=== PATIENT | female | born 1970 | race Caucasian/White ===

== ENCOUNTER 2017-04-25 15:59 | Emergency (ER) | payer OTHER ==
--- NOTE | 2017-04-25 16:04 | PDOC ---
Attending Attestation - Resident Resident Name: Surekha Melgar - ED Attending Attestation I have performed the following: I have examined & evaluated the patient, The case was reviewed & discussed with the resident, I agree w/resident's findings & plan, Exceptions are as noted - HPI HPI: 04/25/17 16:09 46yo F hx HTN (intermittently compliant with lisinopril) p/w SOB, CP and palpitations a/w lightheadedness and nausea while cleaning with clorox. REports this is first time this happened. CP was substernal, pressure like, non radiating, resolved after a few minutes on its own. No LOC. Most of symptoms have resolved but she still has SOB and lightheadedness. Pt checks BP daily, reports she stopped taking lisinopril 3 months ago as SBP was in 140s, but 3 days ago SBP was in 160s and so she restarted lisinopril over the last 3 days. No recent travel or immobility. Denies any exogenous hormone use. No recent surgeries. Denies calf swelling. Denies any fevers, chills, coughing, nausea, vomiting, diarrhea, diaphoresis, headache, focal weakness or numbness, urinary symptoms. - Physicial Exam PE: 04/25/17 16:15 GENERAL: Awake, alert, and fully oriented, in no acute distress HEAD: No signs of trauma EYES: PERRLA, EOMI, sclera anicteric, conjunctiva clear ENT: Auricles normal inspection, hearing grossly normal, nares patent, oropharynx clear without exudates. Moist mucosa NECK: Normal ROM, supple, no lymphadenopathy, JVD, or masses LUNGS: Breath sounds equal, clear to auscultation bilaterally. No wheezes, and no crackles HEART: Regular rate and rhythm, normal S1 and S2, no murmurs, rubs or gallops ABDOMEN: Soft, nontender, normoactive bowel sounds. No guarding, no rebound. No masses EXTREMITIES: Normal range of motion, no edema. No clubbing or cyanosis. No cords, erythema, or tenderness NEUROLOGICAL: Normal speech, cranial nerves intact, negative pronator drift, 5/ 5 strength in all 4 extremities, normal sensation to light touch in all 4 extremities, normal cerebellar exam, normal gait, normal reflexes and tone SKIN: Warm, Dry, normal turgor, no rashes or lesions noted. - Medical Decision Making 04/25/17 16:31 46-year-old female with a history of hypertension presents with episode of shortness of breath, chest pain, lightheadedness while cleaning with Clorox. Patient also concerned that her blood pressure has been high over the last 3 days. Vitals in the ED with SBP in 150s, otherwise vitals wnl. Heart score 2. Since pt is low risk, will check 2 troponins and DC if they are negative. Pt does not meet any PERC criteria and thus PE is unlikely. Will check CXR for structural abnormalities or active pulm disease. Plan: -labs -CXR -reassess 04/25/17 18:32 Pt denies current symptoms. Feels better. Labs including first trop neg. CXR clear on my read. Second trop pending, signed out to oncoming night attending. Heart Score/ECG Review - History History: Slightly suspicious - Electrocardiogram EKG: Normal - Age Age: 45-65 - Risk Factors Risk Factors Heart Score: Yes Hx Hypertension Based on the list above the patient has:: 1-2 risk factors - Troponin Troponin: </= normal limit - Score Heart Score - Total: 2 #1 04/25/17 19:00 Twelve-lead EKG was performed and reviewed by me. Normal sinus rhythm, rate 73. Normal axis and intervals. No ST elevations. Isolated T-wave inversion in lead 3.
[2017-04-25 16:14] VITALS: TEMP 98.1; BMI 24.7
--- NOTE | 2017-04-25 16:45 | PDOC ---
History of Present Illness - History of Present Illness Initial Comments: 04/25/17 16:41 Patient is a 46 y.o female with a PMH of HTN who presents c/o acute onset of shortness of breath, palpitations lightheadness, nausea and chest pain while cleaning with Clorox bleach this morning. Patient states the non-radiating, pressure like chest pain over her sternum resolved within a few minutes however the dyspnea, lightheadedness and palpitations persisted prompting her to call 911 and present to the ED via ambulance. NKDA Surgical: none Social: denies cigarettes, denies alcohol, denies recreational drugs PMD: Dr. Trevon Shelton 04/25/17 16:47 <Surekha Melgar - Last Filed: 04/25/17 18:56> <Yash Watters - Last Filed: 04/25/17 21:25> - General Chief Complaint: Blood Pressure Problem Stated Complaint: HTN Time Seen by Provider: 04/25/17 16:03 Past History - Past Medical History Asthma: No Cancer: No Cardiac Disorders: No COPD: No Diabetes: No HTN: Yes Thyroid Disease: No - Reproductive History (#): 4 Para: 4 Therapeutic (s) & number: No - Suicide/Smoking/Psychosocial Hx Smoking History: Never smoked Have you smoked in the past 12 months: No Information on smoking cessation initiated: No Hx Alcohol Use: No Drug/Substance Use Hx: No Substance Use Type: None Hx Substance Use Treatment: No <Surekha Melgar - Last Filed: 04/25/17 18:56> <Yash Watters - Last Filed: 04/25/17 21:25> - Past Medical History Allergies/Adverse Reactions: Allergies Allergy/AdvReac Type Severity Reaction Status Date / Time No Known Allergies Allergy Verified 04/25/17 15:59 Home Medications: Ambulatory Orders Lisinopril 5 mg PO DAILY 04/25/17 *Physical Exam - Vital Signs Last Vital Signs Temp Pulse Resp BP Pulse Ox 98.1 F 84 20 166/79 100 04/25/17 15:59 04/25/17 15:59 04/25/17 15:59 04/25/17 15:59 04/25/17 15:59 - Physical Exam General Appearance: Yes: Nourished, Appropriately Dressed Respiratory/Chest: positive: Lungs Clear Cardiovascular: positive: Regular Rhythm, Regular Rate, S1, S2. negative: Murmur, Tachycardia Extremity: positive: Normal Capillary Refill, Normal Inspection Integumentary: positive: Normal Color, Dry, Warm Neurologic: positive: Fully Oriented, Alert <RamónSurekha - Last Filed: 04/25/17 18:56> - Vital Signs Last Vital Signs Temp Pulse Resp BP Pulse Ox 98.1 F 73 14 139/84 100 04/25/17 15:59 04/25/17 19:30 04/25/17 19:30 04/25/17 19:30 04/25/17 19:30 <Yash Watters - Last Filed: 04/25/17 21:25> ED Treatment Course - LABORATORY CBC & Chemistry Diagram: 04/25/17 16:40 04/25/17 16:40 <RamónSurekha - Last Filed: 04/25/17 18:56> - LABORATORY CBC & Chemistry Diagram: 04/25/17 16:40 04/25/17 16:40 - ADDITIONAL ORDERS Additional order review: Laboratory Results 04/25/17 04/25/17 20:24 16:40 Sodium 135 L Potassium 3.4 L Chloride 99 Carbon Dioxide 27 Anion Gap 9 BUN 15 Creatinine 0.7 Creat Clearance w eGFR > 60 Random Glucose 98 Calcium 9.5 Total Bilirubin 0.8 AST 19 ALT 20 Alkaline Phosphatase 82 Creatine Kinase 192 Troponin I < 0.03 L 0.00 Total Protein 8.0 Albumin 4.7 04/25/17 16:40 RBC 4.16 MCV 90.8 MCHC 33.2 RDW 12.1 MPV 10.3 Neutrophils % 66.2 Lymphocytes % 25.6 Monocytes % 6.3 Eosinophils % 1.0 Basophils % 0.9 <Yash Watters - Last Filed: 04/25/17 21:25> Medical Decision Making - Medical Decision Making 04/25/17 17:47 Patient is a 46 y.o. female who presents with resolved chest pain and current c/ o dyspnea, lightheadedness and palpitations. Patient is not tachycardic and saturating @ 100% on RA. Clinical suspicion for PE is low as patient does not meet PERC critier. Initial DDx is for anxiety vs. ACS. PLAN: 1. EKG 2. Troponin, CBC, CMP Reassess 04/25/17 17:53 EKG shows NSR HR 73 wtih normal intervals, good R wave progression and no ST elevations Troponin (-) x1, CBC shows no leukocytosis, no anemia. Minor hypokalemia Patient resting comfortably, notes symptoms have resolved. Repeat troponin @ 4 hour shu 20:00 04/25/17 18:55 Patient signed out to Dr. Watters in stable condition. 04/25/17 18:56 <Surekha Melgar - Last Filed: 04/25/17 18:56> *DC/Admit/Observation/Transfer <Surekha Melgar - Last Filed: 04/25/17 18:56> - Discharge Dispostion Admit: No <Yash Watters - Last Filed: 04/25/17 21:25> Diagnosis at time of Disposition: Lightheaded - Discharge Dispostion Disposition: HOME Condition at time of disposition: Stable - Patient Instructions Printed Discharge Instructions: DI for High Blood Pressure, How to Monitor Your Blood Pressure at Home Additional Instructions: See primary physician 2-3 days for follow-up. Return to ER if symptoms worsen or new symptoms develop. - Post Discharge Activity Forms/Work/School Notes: Back to Work
[2017-04-25 16:55] LABS: BASOPHIL 0.9 % (0-2.0); MCH 30.2 pg (25.7-33.7); MCHC 33.2 g/dl (32.0-36.0); MEAN CELL VOLUME 90.8 fl (80-96); MEAN PLT VOLUME 10.3 fl (7.5-11.1); NEUTROPHILS 66.2 % (42.8-82.8); PLATELET COUNT 215 K/MM3 (134-434); RDW 12.1 % (11.6-15.6); WHITE BLOOD COUNT 7.4 K/mm3 (4.0-10.8)
[2017-04-25 17:14] LABS: ALBUMIN 4.7 g/dl (3.5-5.0); ALK PHOS 82 U/L (32-92); ANION GAP 9 (8-16); BILIRUBIN,TOTAL 0.8 mg/dl (0.2-1.0); CALCIUM 9.5 mg/dl (8.4-10.2); CO2 27 mmol/L (22-28); CREATININE 0.7 mg/dl (0.6-1.3); GLUCOSE,RANDOM 98 mg/dl (74-106); SGOT/AST 19 U/L (10-42); SGPT/ALT 20 U/L (10-40)
[2017-04-25 19:31] VITALS: BP 139/84; PULSE 73
[2017-04-25 20:56] LABS: CPK 192 IU/L (26-192)
[2017-04-25 21:06] LABS: TROPONIN I (DFP) < 0.03 ng/ml (0.03-0.50)
--- NOTE | 2017-04-26 12:29 | EKG ---
Test Reason : Blood Pressure : / mmHG Vent. Rate : 073 BPM Atrial Rate : 073 BPM P-R Int : 134 ms QRS Dur : 100 ms QT Int : 408 ms P-R-T Axes : 033 034 035 degrees QTc Int : 449 ms SINUS RHYTHM RSR' OR QR PATTERN IN V1 SUGGESTS RIGHT VENTRICULAR CONDUCTION DELAY WHEN COMPARED WITH ECG OF 28-FEB-2014 13:43, NO SIGNIFICANT CHANGE WAS FOUND Confirmed by DANAE GARCIA MD ([id number]) on 04/26/2017 12:28:52 PM Referred By: MD JIMENEZ Confirmed By:DANAE GARCIA MD
== END 2017-04-25 21:30 | disposition home or self-care (01) ==
LOC: FER 15:59
DX: R42 Dizziness and giddiness (principal); I10 Essential (primary) hypertension
CPT/HCPCS: 36415; 71020-TC; 80053; 82550; 82553; 84484; 85025; 93005; 99283-25

== ENCOUNTER 2019-09-19 09:09 | Emergency (ER) | payer OTHER ==
[2019-09-19 09:17] VITALS: PULSE 81; TEMP 98.6; BMI 23.9
[2019-09-19] MEDS ORDERED: LACTATED RINGERS SOLUTION 1000 ML INFUS.BAG IV ONE (10:19)
--- NOTE | 2019-09-19 10:28 | PDOC ---
History of Present Illness - General Chief Complaint: Headache Stated Complaint: HYPERTENSION Time Seen by Provider: 09/19/19 09:46 History Source: Patient Exam Limitations: Clinical Condition - History of Present Illness Initial Comments: 09/19/19 10:30 Patient with past medical history of hypertension on amlodipine 5 mg daily presented with complaint of sudden onset of headache, elevated blood pressure and tingling sensation in left arm since this morning. Patient reported saw PCP 5 days ago for persistent elevated blood pressures and PCP put her on lisinopril. Patient did not take blood pressure medication today. Patient reported had elevated blood pressure yesterday with similar symptoms which improved after taking her blood pressure medication. Patient reported mild lightheadedness but denies nausea, vomiting, dizziness, blurry vision or change in vision. Denies shortness of breath, sweats, fever or chills. Denies any other symptoms Is this a multiple visit Asthma Patient?: No Timing/Duration: 4-6 hours Past History - Past Medical History Allergies/Adverse Reactions: Allergies Allergy/AdvReac Type Severity Reaction Status Date / Time No Known Allergies Allergy Verified 09/19/19 09:17 Home Medications: Ambulatory Orders Lisinopril 5 mg PO DAILY 04/25/17 Asthma: No Cancer: No Cardiac Disorders: No COPD: No Diabetes: No HTN: Yes Thyroid Disease: No Other medical history: PRECLAMPSIA - Reproductive History (#): 4 Para: 4 Therapeutic (s) & number: No - Psycho Social/Smoking Cessation Hx Smoking History: Never smoked Have you smoked in the past 12 months: No Hx Alcohol Use: No Drug/Substance Use Hx: No Substance Use Type: None Hx Substance Use Treatment: No Review of Systems - Review of Systems Able to Perform ROS?: Yes Is the patient limited Setswana proficient: No Constitutional: No: Chills, Fever, Malaise HEENTM: No: Symptoms Reported, See HPI, Eye Pain, Blurred Vision, Tearing, Recent change in vision, Double Vision, Cataracts, Ear Pain, Ocular Prothesis, Ear Discharge, Nose Pain, Nose Congestion, Tinnitus, Nose Bleeding, Hearing Loss, Throat Pain, Throat Swelling, Mouth Pain, Dental Problems, Difficulty Swallowing, Mouth Swelling, Other Respiratory: No: Symptoms reported, See HPI, Cough, Orthopnea, Shortness of Breath, SOB with Exertion, SOB at Rest, Stridor, Wheezing, Productive cough, Hemoptysis, Other Cardiac (ROS): Yes: Symptoms Reported, See HPI, Palpitations. No: Chest Pain, Edema, Irregular Heart Rate, Lightheadedness, Syncope, Chest Tightness, Other ABD/GI: No: Symptoms Reported, See HPI, Abdominal Distended, Abd. Pain w/ defecation, Blood Streaked Bowels, Constipated, Diarrhea, Difficulty Swallowing, Nausea, Poor Appetite, Poor Fluid Intake, Rectal Bleeding, Vomiting, Indigestion, Abdominal cramping, Tarry Stools, Other Musculoskeletal: No: Symptoms Reported Integumentary: No: Symptoms Reported, Rash Neurological: Yes: Symptoms reported, See HPI, Headache, Tingling (left arm tingling sensation), Dizziness. No: Numbness, Paresthesia, Pre-Existing Deficit, Weakness, Unsteady Gait, Ataxia All Other Systems: Reviewed and Negative *Physical Exam - Vital Signs Last Vital Signs Temp Pulse Resp BP Pulse Ox 98.6 F 81 16 173/56 H 100 09/19/19 09:14 09/19/19 09:14 09/19/19 09:14 09/19/19 09:14 09/19/19 09:14 - Physical Exam 09/19/19 10:28 GENERAL: Well developed, well nourished. Awake and alert. No acute distress. HEENT: Normocephalic, atraumatic. PERRLA, EOMI. No conjunctival pallor. Sclera are non-icteric. Moist mucous membranes. Oropharynx is clear. NECK: Supple. Full ROM. CARDIOVASCULAR: Regular rate and rhythm. No murmurs, rubs, or gallops. Distal pulses are 2+ and symmetric. PULMONARY: No evidence of respiratory distress. Lungs clear to auscultation bilaterally. No wheezing, rales or rhonchi. ABDOMINAL: Soft. Non-tender. Non-distended. No rebound or guarding. No organomegaly. Normoactive bowel sounds. MUSCULOSKELETAL Normal range of motion at all joints. SKIN: Warm and dry. Normal capillary refill. No rashes. No cyanosis. NEUROLOGICAL: Alert, awake, appropriate. Gait is normal without ataxia. PSYCHIATRIC: Cooperative. Good eye contact. Appropriate mood General Appearance: Yes: Nourished, Appropriately Dressed. No: Apparent Distress ED Treatment Course - LABORATORY CBC & Chemistry Diagram: 09/19/19 10:30 09/19/19 10:30 Medical Decision Making - Medical Decision Making 09/19/19 10:31 Patient with past medical history of hypertension on amlodipine 5 mg daily p resented with complaint of sudden onset of headache, elevated blood pressure and tingling sensation in left arm since this morning. Patient reported saw PCP 5 days ago for persistent elevated blood pressures and PCP put her on lisinopril. Patient did not take blood pressure medication today. Patient reported had elevated blood pressure yesterday with similar symptoms which improved after taking her blood pressure medication. Patient reported mild lightheadedness but denies nausea, vomiting, dizziness, blurry vision or change in vision. Denies shortness of breath, sweats, fever or chills. Denies any other symptoms Clinical exam unremarkable. Normal cardio exam. Patient in no acute distress. Normal strength and sensation of bilateral upper extremities. Patient afebrile. Patient symptoms likely related to elevated blood pressure but will do work-up to rule out any cardiac etiology. CBC, CMP and cardiac profile lab ordered. EKG ordered. Patient advised to take home blood pressure lisinopril medication. Will give IV hydration with 1 L lactated Ringer's. Treat based on lab results. Reassess after labs and hydration 09/19/19 13:57 CBC and chemistry lab unremarkable. Repeat cardiac troponins negative. Patient reported complete resolve her symptom. Patient symptoms likely from poorly controlled blood pressure. Patient stable for discharge with advised to continue taking home blood pressure medication and keep blood pressure log with PCP follow-up. Patient advised to come back to emergency room with worsening chest pain or symptoms Discharge - Discharge Information Problems reviewed: Yes Clinical Impression/Diagnosis: Lightheaded, Essential (primary) hypertension Condition: Improved Disposition: HOME - Admission No - Follow up/Referral - Patient Discharge Instructions Patient Printed Discharge Instructions: DI for High Blood Pressure, How to Monitor Your Blood Pressure at Home Additional Instructions: Your blood work is normal. Your symptoms likely caused by elevated blood pressure. Take home blood pressure medication as discussed earlier in the morning to prevent spiking in blood pressure. Keep blood pressure log at home and follow-up with your primary care - Post Discharge Activity
[2019-09-19] MEDS ORDERED: METOCLOPRAMIDE HCL INJECTION 10 MG/2 ML VIAL IVPB ONE (10:34)
[2019-09-19 10:46] LABS: BASO % 0.5 % (0-2.0); EOS % 0.2 % (0-4.5); HEMATOCRIT 41.9 % (32.4-45.2); HEMOGLOBIN 14.1 GM/dL (10.7-15.3); LYMPH % 16.7 % (8-40); MCH 30.3 pg (25.7-33.7); MCHC 33.7 g/dl (32.0-36.0); MEAN CELL VOLUME 89.7 fl (80-96); MEAN PLT VOLUME 10.7 fl (7.5-11.1); MONO % 3.2 % (3.8-10.2); NEUT % 79.4 % (42.8-82.8); PLATELET COUNT 185 K/MM3 (134-434); RBC 4.67 M/mm3 (3.60-5.2); RDW 13.4 % (11.6-15.6); WHITE BLOOD COUNT 10.3 K/mm3 (4.0-10.0)
[2019-09-19 11:03] LABS: HCG,QUALITATIVE URINE Negative
[2019-09-19 11:10] LABS: URINE APPEARANCE CLEAR; URINE BILIRUBIN NEGATIVE (NEGATIVE); URINE COLOR YELLOW; URINE GLUCOSE (UA) NEGATIVE (NEGATIVE); URINE KETONE NEGATIVE (NEGATIVE); URINE LEUK ESTERASE NEGATIVE (NEGATIVE); URINE NITRITE NEGATIVE (NEGATIVE); URINE PROTEIN NEGATIVE (NEGATIVE); URINE UROBILINOGEN 0.2 mg/dL (0.2-1.0)
[2019-09-19 11:22] LABS: ALBUMIN 4.4 g/dl (3.4-5.0); ALK PHOS 133 U/L (45-117); ANION GAP 9 MMOL/L (8-16); BILIRUBIN,TOTAL 0.5 mg/dL (0.2-1); BLOOD UREA NITROGEN 14.9 mg/dL (7-18); CALCIUM 9.4 mg/dL (8.5-10.1); CHLORIDE 106 mmol/L (98-107); CO2 24 mmol/L (21-32); CREATININE 0.6 mg/dL (0.55-1.3); GLUCOSE,RANDOM 92 mg/dL (74-106); POTASSIUM 4.6 mmol/L (3.5-5.1); SGOT/AST 26 U/L (15-37); SGPT/ALT 30 U/L (13-61); SODIUM 139 mmol/L (136-145); TOT PROT 8.8 g/dl (6.4-8.2)
[2019-09-19] MEDS ORDERED: METOCLOPRAMIDE HCL INJECTION 10 MG/2 ML VIAL ONE (11:31)
[2019-09-19 14:27] VITALS: BP 141/81
--- NOTE | 2019-09-20 18:09 | EKG ---
Test Reason : Blood Pressure : / mmHG Vent. Rate : 092 BPM Atrial Rate : 092 BPM P-R Int : 132 ms QRS Dur : 106 ms QT Int : 394 ms P-R-T Axes : 055 056 059 degrees QTc Int : 487 ms NORMAL SINUS RHYTHM INCOMPLETE RIGHT BUNDLE BRANCH BLOCK NONSPECIFIC ST ABNORMALITY PROLONGED QT ABNORMAL ECG WHEN COMPARED WITH ECG OF 25-APR-2017 16:36, NO SIGNIFICANT CHANGE WAS FOUND Confirmed by SHEELA THOMAS MD ([id number]) on 09/20/2019 6:08:49 PM Referred By: Confirmed By:SHEELA THOMAS MD
== END 2019-09-19 14:27 | disposition home or self-care (01) ==
LOC: JER 09:09
DX: R42 Dizziness and giddiness (principal); I10 Essential (primary) hypertension
CPT/HCPCS: 36415; 80053; 81003; 82550; 84484; 84703; 85025; 93005; 93010; 99284-25

== ENCOUNTER 2023-06-27 00:08 | Emergency (ER) | payer OTHER ==
[2023-06-27 00:22] VITALS: RESP 18; TEMP 98.5; BMI 23.6
[2023-06-27] MEDS ORDERED: METOCLOPRAMIDE HCL INJECTION 10 MG/2 ML VIAL IVPB ONE (02:05)
[2023-06-27] MEDS ORDERED: SODIUM CHLORIDE 0.9% 500 ML INFUS.BAG IV ONE (02:05)
[2023-06-27] MEDS ORDERED: ACETAMINOPHEN 1000 MG/100 ML BAG IVPB ONE (02:05)
[2023-06-27] MEDS ORDERED: METOCLOPRAMIDE HCL INJECTION 10 MG/2 ML VIAL ONE (02:36)
[2023-06-27] MEDS ORDERED: ACETAMINOPHEN INJECTION 100 ML IVPB ONE (02:36)
[2023-06-27 02:59] LABS: BASO % 0.3 % (0-2.0); EOS % 1.1 % (0-4.5); LYMPH % 26.4 % (8-40); MCH 30.2 pg (25.7-33.7); MCHC 33.3 g/dl (32.0-36.0); MEAN CELL VOLUME 90.5 fl (80-96); MEAN PLT VOLUME 9.3 fl (7.5-11.1); MONO % 7.9 % (3.8-10.2); NEUT % 64.3 % (42.8-82.8); PLATELET COUNT 207 10^3/uL (134-434); RBC 3.97 M/mm3 (3.60-5.2); RDW 13.1 % (11.6-15.6); WHITE BLOOD COUNT 6.6 K/mm3 (4.0-10.0)
[2023-06-27 03:13] LABS: POTASSIUM 4.2 mmol/L (3.5-5.1)
[2023-06-27 03:15] LABS: CALCIUM 9.5 mg/dL (8.5-10.1)
[2023-06-27 03:16] LABS: BLOOD UREA NITROGEN 11.8 mg/dL (7-18)
[2023-06-27 03:19] LABS: CREATININE 0.6 mg/dL (0.55-1.3)
[2023-06-27 03:21] LABS: BILIRUBIN,TOTAL 0.3 mg/dL (0.2-1); TOT PROT 7.8 g/dl (6.4-8.2)
[2023-06-27 06:02] VITALS: BP 144/67; PULSE 67
== END 2023-06-27 06:02 | disposition home or self-care (01) ==
LOC: JER 00:08
PROC: 3E033NZ Introduction of Analgesics, Hypnotics, Sedatives into Peripheral Vein, Percutaneous Approach (ICD-10-PCS; principal; 2023-06-27)
PROC: 3E033GC Introduction of Other Therapeutic Substance into Peripheral Vein, Percutaneous Approach (ICD-10-PCS; 2023-06-27)
DX: I10 Essential (primary) hypertension (principal); R51.9 Headache, unspecified; R05.9 Cough, unspecified; Z20.822 Contact with and (suspected) exposure to COVID-19
CPT/HCPCS: 0241U-QW; 36415; 70450-TC; 80053; 84484; 84703; 85025; 93005; 93010; 99285-25